=== PATIENT | male | born 2000 | race Caucasian/White ===

== ENCOUNTER 2023-03-14 01:36 | Emergency (ER) | payer OTHER ==
[~2023-03-14] VITALS: Ht 165.1 cm; Wt 54.4 kg
== END 2023-03-14 04:04 | disposition home or self-care (01) ==
LOC: ER 01:36 → EMR PED 01:36 → ER 03:14
DX: L50.0 Allergic urticaria (principal); Z88.0 Allergy status to penicillin

== ENCOUNTER 2023-11-28 10:41 | Emergency (ER) | payer OTHER ==
[~2023-11-28] VITALS: Ht 160 cm; Wt 52.6 kg
[2023-11-28] MEDS ORDERED: TOBRAMYCIN/DEXAMETHASONE 20 DR/ML DROPS OP SCH (13:29)
== END 2023-11-28 13:33 | disposition home or self-care (01) ==
LOC: ER 10:42
DX: H01.004 Unspecified blepharitis left upper eyelid (principal)